=== PATIENT | female | born 1960 | race Caucasian/White ===

== ENCOUNTER 2018-05-31 21:12 | Emergency (ER) | payer BC ==
[~2018-05-31] VITALS: Ht 167.6 cm; Wt 86.4 kg
[2018-05-31 21:37] VITALS: Ht 167.6 cm; Wt 86.4 kg
[2018-05-31] MEDS ORDERED: TRILEPTAL600 MG PO (21:39)
[2018-05-31 23:30] VITALS: BP 147/82
== END 2018-05-31 23:33 | disposition home or self-care (01) ==
LOC: D.ER 21:12
DX: S61.211A Laceration without foreign body of left index finger without damage to nail, initial encounter (principal); S61.213A Laceration without foreign body of left middle finger without damage to nail, initial encounter; W26.0XXA Contact with knife, initial encounter; Y93.89 Activity, other specified; Y92.019 Unspecified place in single-family (private) house as the place of occurrence of the external cause

== ENCOUNTER 2019-04-25 07:25 | Day surgery (SDC) | payer BC ==
[2018-05-31 21:37] VITALS: Ht 167.6 cm; Wt 75.8 kg
[2019-04-24 09:31] LABS: HEMATOCRIT 42.9 % (36.0-48.0); HEMOGLOBIN 14.6 g/dL (12-16); MCH 33.3 pg (26.0-34.0); MCV 97.9 fL (80.0-100.0); MEAN PLATELET VOLUME 9.5 fL (7.4-10.4); RBC 4.38 10x6/uL (4.00-5.40); RDW 13.2 % (11.5-14.5); WBC 9.6 10x3/uL (4.8-10.8)
[~2019-04-25] VITALS: Ht 167.6 cm; Wt 75.8 kg
[~2019-04-25 07:25] MED LIST: BACLOFEN10 MG PO; GABAPENTIN100 MG PO; IBUPROFEN800 MG PO; PERCOCET 10-321 EAC1 PO; TRILEPTAL600 MG PO
[2019-04-25 07:49] VITALS: BP 180/91; BMI 27.0
[2019-04-25] MEDS ORDERED: HYDROCODON-ACE1 EA10 PO (10:42)
--- NOTE | 2019-05-16 09:48 | OP ---
PATIENT NAME: IVETT MAXWELL MEDICAL RECORD: [id number] :60 LOCATION:[facility] ADMISSION DATE: SURGEON: LESVIA NUÑEZ MD DATE OF OPERATION: 04/25/2019 PREOPERATIVE DIAGNOSES: Disc herniation L4-L5 on the right with lumbar spinal stenosis and foraminal stenosis, L4-L5 on the right. POSTOPERATIVE DIAGNOSES: Disc herniation L4-L5 on the right with lumbar spinal stenosis and foraminal stenosis, L4-L5 on the right. PROCEDURE: Lumbar laminotomy, medial facetectomy and foraminotomy at L4-L5 on the right with discectomy L4-L5 on the right with METRx retractor. DESCRIPTION AND TECHNIQUE: After induction of general endotracheal anesthesia, the patient was rolled prone on a Larry frame. Lumbar spine was prepped and draped in usual sterile fashion. Fluoroscopic x-ray and spinal needle localized the L4-L5 interspace on the right side. Level was confirmed with fluoroscopic x-ray. After infiltration of 1:100,000 epinephrine and 1% lidocaine, a stab incision was created with a #11 blade. A series of dilators were used to advance a METRx retractor to the L4-L5 interspace on the right side. The level was confirmed with fluoroscopic x-ray. A microscope and Midas David drill were used to perform laminotomy, medial facetectomy and foraminotomy at L4-L5 on the right. Hypertrophied ligamentum flavum was removed with Cloward rongeurs. Following this, there was an obvious disc herniation within the axilla of the right L5 nerve root. This was removed in a piecemeal fashion with pituitary rongeurs. Additional material was removed from the disc space and was sent to pathology for diagnosis. Hypertrophied ligamentum flavum was removed with Cloward rongeurs. Following this, the L4 and L5 nerve roots were decompressed well. Meticulous hemostasis was maintained throughout the wound. The wound was irrigated with copious amounts of Ancef irrigant solution. The fascia was closed with 2-0 Vicryl suture. Subdermal layer was closed with 3-0 Vicryl suture. Skin was closed with Steri-Strips and benzoin. A sterile dressing was applied to the wound. The patient was awakened in good condition and taken to recovery. All counts were reported as correct. Estimated blood loss was minimal. TRANSINT:[id number] Voice Confirmation ID: [id number] DOCUMENT ID: [id number] LESVIA NUÑEZ MD at 0948 CC: [id number] DICTATION DATE: 05/16/[address] FRE[place]: 05/16/1946 [facility] 04/25/19 [place] [id number]
== END 2019-04-25 13:35 | disposition home or self-care (01) ==
LOC: D.OPS 07:25 → D.PAN 11:00 → D.OPS 12:15
PROVIDERS: Anesthesiology; ATTEND Neurological Surgery
DX: M51.16 Intervertebral disc disorders with radiculopathy, lumbar region (principal)

== ENCOUNTER → 2019-07-04 11:00 | Outpatient (CLI) | payer BC ==
[~2019-07-04 11:00] MED LIST changes: +HYDROCODON-ACE1 EA10 PO
== END | disposition home or self-care (01) ==
LOC: D.MRI 11:00
PROVIDERS: ATTEND Neurological Surgery
DX: M54.16 Radiculopathy, lumbar region (principal)